=== PATIENT | male | born 1965 | race American Indian/Alaskan Native ===

== ENCOUNTER 2019-07-02 10:09 | Emergency (ER) | payer SELFPAY ==
[2019-07-02 11:00] VITALS: BP 143/89
== END 2019-07-02 14:00 | disposition left against medical advice (07) ==
LOC: ED 10:09
DX: M25.572 Pain in left ankle and joints of left foot (principal); Z53.21 Procedure and treatment not carried out due to patient leaving prior to being seen by health care provider

== ENCOUNTER 2019-07-04 10:53 | Outpatient (CLI) | payer OTHER ==
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
== END 2019-07-04 10:54 | disposition home or self-care (01) ==
LOC: XRAY 10:53
PROVIDERS: ATTEND Internal Medicine
DX: S99.812A Other specified injuries of left ankle, initial encounter (principal); X58.XXXA Exposure to other specified factors, initial encounter; Y93.89 Activity, other specified; Y92.89 Other specified places as the place of occurrence of the external cause; Y99.8 Other external cause status